=== PATIENT | female | born 1955 | race Caucasian/White ===

== ENCOUNTER 2023-01-12 21:49 | Emergency (ER) | payer MEDICARE, BC ==
[2023-01-12 22:05] VITALS: BP 147/90; PULSE 75
[2023-01-12] MEDS ORDERED: Ketorolac 60 MG/2 ML SDV IM ONE (23:11)
== END 2023-01-13 00:12 | disposition home or self-care (01) ==
LOC: JD.ED 21:49
DX: S82.851A Displaced trimalleolar fracture of right lower leg, initial encounter for closed fracture (principal); E78.00 Pure hypercholesterolemia, unspecified; I10 Essential (primary) hypertension; Z86.16 Personal history of COVID-19; Z79.82 Long term (current) use of aspirin; Z79.899 Other long term (current) drug therapy; X50.1XXA Overexertion from prolonged static or awkward postures, initial encounter
CPT/HCPCS: 73610; 96372; 99283; J1885

== ENCOUNTER 2023-01-20 06:18 | Day surgery (SDC) | payer MEDICARE, BC ==
[~2023-01-20 06:18] MED LIST: Lactated Ringers 1,000 ML IV SCH; Sodium Chloride 0.9% 10 ML Syringe FLUSH PRN
[2023-01-20] MEDS ORDERED: Dexmedetomidine 200 MCG/2 ML SDV ONE (06:22)
[2023-01-20] MEDS ORDERED: Ropivacaine 0.5% 5 MG/ML 30 ML SDV ONE ×2 (06:23→06:33)
[2023-01-20] MEDS ORDERED: Lidocaine 1% 6 ML ONE (06:25)
[2023-01-20] MEDS ORDERED: Propofol 200 MG/20 ML SDV ONE ×2 (06:25→06:26)
[2023-01-20] MEDS ORDERED: fentaNYL 100 MCG/2 ML SDV ONE ×2 (06:25→08:06)
[2023-01-20] MEDS ORDERED: Midazolam 1 MG/ML 2 ML SDV ONE (06:26)
[2023-01-20] MEDS ORDERED: EPINEPHrine 1 MG/ML SDV ONE (07:15)
[2023-01-20] MEDS ORDERED: ceFAZolin 2 GM Vial ONE (07:36)
[2023-01-20] MEDS ORDERED: Ondansetron 4 MG/2 ML SDV ONE (08:04)
[2023-01-20] MEDS ORDERED: Bupivacaine 0.25% 10 ML SDV ONE (08:27)
[2023-01-20] MEDS ORDERED: HYDROmorphone 0.5 MG/0.5 ML Syringe IVPUSH PRN (08:34)
[2023-01-20] MEDS ORDERED: fentaNYL 100 MCG/2 ML SDV IVPUSH PRN (08:34)
[2023-01-20] MEDS ORDERED: Metoclopramide 10 MG/2 ML SDV ONE (08:34)
[2023-01-20] MEDS ORDERED: Lactated Ringers 1,000 ML ONE (08:35)
[2023-01-20] MEDS ORDERED: Dexamethasone 4 MG/ML 5 ML MDV ONE (08:40)
[2023-01-20] MEDS ORDERED: Sodium Chloride 0.9% 10 ML Syringe FLUSH SCH (09:00)
[2023-01-20] MEDS ORDERED: Acetaminophen/HYDROcodone 325-5 MG Tab PO PRN (09:45)
[2023-01-20 12:32] VITALS: BP 118/70; PULSE 76
== END 2023-01-20 12:23 | disposition home or self-care (01) ==
LOC: JD.SDS 06:18
PROVIDERS: ATTEND Orthopaedic Surgery
DX: S82.851A Displaced trimalleolar fracture of right lower leg, initial encounter for closed fracture (principal); I10 Essential (primary) hypertension; E78.00 Pure hypercholesterolemia, unspecified; Z98.51 Tubal ligation status; Z79.82 Long term (current) use of aspirin; Z79.899 Other long term (current) drug therapy; W00.0XXA Fall on same level due to ice and snow, initial encounter
CPT/HCPCS: 01480; 64447; 76000; 76000-26; C1713; C1769; C1776; J0171; J0690; J1100; J2250; J2405; J2704; J2765; J2795; J3010; J3490; J7120